=== PATIENT | male | born 1935 | race Caucasian/White ===

== ENCOUNTER 2017-04-05 08:35 | Inpatient (IN) | payer MEDICARE, OTHER ==
[~2017-04-05] VITALS: Ht 182.9 cm; Wt 70.0 kg
[~2017-04-05 08:35] MED LIST: ALBUTEROL S2.5 MG/.5 IN; CLARINEX5 MG PO; LIPITOR10 MG PO; MICARDIS40 MG PO; NASONEX50 MCG/AC NAB; NEXIUM40 M1 PO; PREDNISONE10 MG PO; SPIRIVA IN
--- NOTE | 2017-04-05 08:35 | NUR ---
TO ROOM 9 VIA STRETCHER BY EMS. ALERT. COOPERATIVE. ON 02 AT 2L/MIN PER CANNULA ( PER USUAL). HOB ELEVATED. MD AT BEDSIDE UPON ARRIVAL. LEFT INGUINAL HERNIA PROTRUDING. EVAL BY DR SANCHEZ. HERNIA REDUCED AND RETURNED TO NORMAL POSITION. EDUCATION TO CONDITION, PROCEDURE AND POTENTIONAL ADVESE EFFECTS EXPLINED IN DETAIL TO PT BY MD. PT VERBALIZED UNDERSTANDING.
--- NOTE | 2017-04-05 08:42 | NUR ---
PT SAID THAT HE HAS HAD ISSUES WITH THIS HERNIA FOR A LONG TIME. HOWEVER, HE CANNOT HAVE SURGERY BECAUSE HE CANNOT BE OUT TO SLEEP
[2017-04-05] MEDS ORDERED: TAMSULOSIN HCL0.4 MG PO (08:43)
[2017-04-05 09:02] LABS: HEMATOCRIT 51.5 % (39.0-50.0); HEMOGLOBIN 16.9 g/dl (14.0-18.0); MEAN CORPUSCULAR HGB 29.9 pG CALC (26.0-32.0); MEAN CORPUSCULAR HGB CONC 32.8 g/L CALC (32.0-36.0); NEUT# 22.44 thou/uL (1.82-7.42); RED BLOOD COUNT 5.66 mill/uL (4.70-6.10); RED CELL DISTRI WIDTH 13.6 % (11.5-15.5)
[2017-04-05] MEDS ORDERED: ANORO ELLIPTA 61 AER IN (09:04)
--- NOTE | 2017-04-05 09:12 | NUR ---
IV FLUIDS INITAITED. PATIENT DENIES ANY ABD PAIN AT THIS TIME. PATIENT REPORTS CONTINUED NAUSEA "DUE TO GERD". PATIENT AWARE OF PLAN OF CARE AND WAIT TIME. CALL KENNEY WITHIN REACH, WILL CONTINUE TO MONITOR.
[2017-04-05 09:14] LABS: ALBUMIN 4.2 g/dL (3.2-5.0); ALKALINE PHOSPHATASE 104 u/l (38-126); ANION GAP 17 (6-22 (CALC)); BILIRUBIN, TOTAL 1.1 mg/dL (0.0-1.4); BUN 18 mg/dL (8-23); BUN/CREATININE RATIO 17 (12-20 (CALC)); CALCIUM 10.4 mg/dL (8.4-10.2); CARBON DIOXIDE 37 mmol/l (22-30); CHLORIDE 90 mmol/l (95-108); CREATININE 1.1 mg/dL (0.7-1.3); GFR > 60 ML/MIN (>=60 (CALC)); GFR FOR AFR.AMER. > 60 ML/MIN (>=60 (CALC)); GLUCOSE 165 mg/dL (82-115); POTASSIUM 4.4 mmol/l (3.5-5.1); SGOT/AST 13 u/l (19-48); SGPT/ALT 25 u/l (11-66); SODIUM 140 mmol/l (137-146); TOTAL PROTEIN 7.4 g/dL (6.3-8.2)
--- NOTE | 2017-04-05 10:00 | NUR ---
PATIENT REPORTS LEFT INGUINAL HERNIA OUT AGAIN. MD NOTIFIED OF THE HERNIA AND ELEVATED WHITE COUNT AND LACTIC ACID. MD AT BEDSIDE INGUINAL HERNIA WAS REDUCED, PT TOLERATED WELL. AWAITING ORDERS.
--- NOTE | 2017-04-05 10:13 | NUR ---
SBAR PRINTED TO FLOOR
--- NOTE | 2017-04-05 10:28 | NUR ---
DR GREWAL AT BEDSIDE.
--- NOTE | 2017-04-05 10:45 | NUR ---
PATIENT ENCOURAGE BY DR GREWAL TO BE TRANSFERRED FOR POSSIBLE SURGERY. PATIENT DECLINED AND WOULD LIKE TO STAY HERE FOR FURTHER TREATMENT.
--- NOTE | 2017-04-05 11:15 | NUR ---
REPORT GIVEN TO TRISTAN LESTER.
--- NOTE | 2017-04-05 11:30 | NUR ---
PATIENT WAS TRANSPORTED TO ROOM 260 IN STABLE CONDITION, WITH PATENT IV.
--- NOTE | 2017-04-05 11:30 | NUR ---
Admission Note Report Given to: SBAR PRINTED TO FLOOR Transported by: Wheelchair X Stretcher Transported with: X Nurse Transporter X Patent IV X O2 Dyeing Machine Tender
[2017-04-05 11:35] VITALS: BP 138/60
--- NOTE | 2017-04-05 12:02 | NUR ---
REPORT RECEIVED FROM DELGADO IN ED, PT ARRIVED ON UNIT VIA STRETCHER AND TRANSFERRED TO BED, EXTREMELY WINDED AT THIS TIME, ASSISTED TO BSC AND BACK TO BED, O2 @ 2L IN PLACE VIA NC, WILL CONTINUE TO MONITOR AND ASSESS AFTER BREATHING GETS BETTER.
--- NOTE | 2017-04-05 14:55 | NUR ---
PT IS MUCH IMPROVED AT THIS TIME, BREATHING EEN AND NON-LABORED, ATE MEAL AND RESTING IN BED.
[2017-04-05 16:00] VITALS: BP 109/52
--- NOTE | 2017-04-05 16:09 | NUR ---
Spoke with patiet during rounds. Patient expressed concern about continuation of his prednisone and Anoro. He needs both of the medications for management of his COPD. Patient's nurse, Radha, stated that the medications needs to be review by the physician and brought down to pharmacy. Patient did not have any other questions or concerns regarding his medications.
[2017-04-05 17:01] LABS: URINE BILIRUBIN - DIPSTICK NEGATIVE (NEGATIVE); URINE BLOOD DIPSTICK TRACE-LYSED (NEGATIVE); URINE CLARITY CLEAR; URINE COLOR YELLOW; URINE GLUCOSE - DIPSTICK NEGATIVE (NEGATIVE); URINE KETONE NEGATIVE (NEGATIVE); URINE LEUK ESTERASE NEGATIVE (Negative); URINE NITRITE - DIPSTICK NEGATIVE (Negative); URINE PROTEIN - DIPSTICK NEGATIVE (NEG-TRACE); URINE SPECIFIC GRAVITY 1.015; URINE UROBILINOGEN - DIPSTICK 0.2 E.U./dL (0.2)
[2017-04-05 19:26] VITALS: BP 127/70
--- NOTE | 2017-04-05 19:30 | NUR ---
BEDSIDE REPORT RECEIVED FROM TRISTAN LESTER. PT RESTING IN BED SITTING UP. ENCOURAGED TO REPOSITION SELF DUE TO MILD REDNESS TO COCCYX. ALERT AND ORIENTED AT THIS TIME. DENIES PAIN AND NAUSEA. RESPIRATIONS EVEN AND UNLABORED ON OXYGEN VIA NC. PLAN OF CARE DISCUSSED. PT ENCOURAGED TO VERBALIZE CONCERNS. STATES UNDERSTANDING. SAFETY MEASURES IN PLACE. CALL LIGHT WITHIN REACH.
[2017-04-05 23:58] VITALS: BP 110/69
--- NOTE | 2017-04-06 01:17 | NUR ---
PT UP WITH ASSIST TO VOID. REPOSITIONING SELF OFF OF BUTTOCK. IV FLUIDS INFUSING WITHOUT DIFFICULTY; IV SITE APPEARS HEALTHY. PT OFFERS NO COMPLAINTS.
--- NOTE | 2017-04-06 04:19 | NUR ---
NO ACUTE CHANGES IN PATIENT CONDITION. ASSESSMENT UNCHANGED.
[2017-04-06 05:32] LABS: ANION GAP 8 (6-22 (CALC)); BUN 14 mg/dL (8-23); BUN/CREATININE RATIO 16 (12-20 (CALC)); CARBON DIOXIDE 30 mmol/l (22-30); CREATININE 0.9 mg/dL (0.7-1.3); GFR > 60 ML/MIN (>=60 (CALC)); GFR FOR AFR.AMER. > 60 ML/MIN (>=60 (CALC)); GLUCOSE 89 mg/dL (82-115); POTASSIUM 3.7 mmol/l (3.5-5.1); SODIUM 142 mmol/l (137-146)
[2017-04-06 05:33] LABS: CALCIUM 8.3 mg/dL (8.4-10.2); CHLORIDE 108 mmol/l (95-108)
[2017-04-06 05:35] LABS: HEMATOCRIT 38.1 % (39.0-50.0); HEMOGLOBIN 12.3 g/dl (14.0-18.0); MEAN CELL VOLUME 92.5 fL CALC (80.0-100.0); MEAN CORPUSCULAR HGB 29.9 pG CALC (26.0-32.0); MEAN CORPUSCULAR HGB CONC 32.3 g/L CALC (32.0-36.0); RED BLOOD COUNT 4.12 mill/uL (4.70-6.10); RED CELL DISTRI WIDTH 13.8 % (11.5-15.5)
[2017-04-06 08:26] VITALS: BP 149/72
--- NOTE | 2017-04-06 08:30 | NUR ---
IVF INFUSING WITHOUT DIFFICULTY; PT A/O X3; NO COMPLAINTS VOICED; IVF INFUSING WITHOUT DIFFICLTY; CALL KENNEY WITHIN REACH; WILL CONTINUE TO MONITOR.
--- NOTE | 2017-04-06 13:45 | NUR ---
FAMILY IN TO VISIT; PT INSISTING OF HAVING MEDS BOUGHT TO HIM AT THIS TIME; EXPLAINED TO PT THAT MED TAMSULOSIN IS SCHEDULED PER [facility] POLICY AND FOR HIS SAFETY; PT STATES THAT HE NEEDS TO TALK TO THE DOCTOR OR PHARMACIST, BECAUSE HE HAS TO TAKES HIS MEDICATIONS HE DOES AT HOME; ALSO REINFORCE TO PT THAT ONCE HE IS AT REHAB HE WILL HAVE TO ADHERE TO THE SCHEDULE THERE; PT AGAIN STATES THAT HE NEEDS TO TALK TO DOCTOR OR WITH THE PHARMACIST
[2017-04-06 16:00] VITALS: BP 184/78
--- NOTE | 2017-04-06 17:45 | NUR ---
PT TOLERATING DINNER WELL; NO COMPLAINTS VOICED AT THIS TIME; CALL KENNEY WITHIN REACH; WILL CONTINUE TO MONITOR.
[2017-04-06 19:18] VITALS: BP 135/71
--- NOTE | 2017-04-06 21:20 | NUR ---
PT RESTING IN HIGH FOWLERS POSITION WATCHING TV;NO S/S OF DISTRESS NOTED;URINAL EMPTIED OF 400CC OF CLEAR/YELLOW URINE;RESPIRATIONS EVEN AND UNLABORED ON 02 @ 2L VIA NC;PT ENCOURAGED TO REPOSITION FREQUENTLY OFF OF BUTTOCKS TO PREVENT FURTHER REDDENING;ASSESSMENT COMPLETED;#20G TO LFA FLUSHED,PATENT AND SITE APPEARS HEALTHY;WARM WASH CLOTH PROVIDED PER REQUEST AND PT CLEANED FACE AND HANDS;PT ALERT AND ORIENTED;PT VOICES NO CONCERN OR NEEDS;SAFETY PRECAUTIONS REINFORCED;PT EDUCATED TO CALL FOR ASSISTANCE IF NEEDED;CALL LIGHT IN REACH;WILL CONTINUE TO MONITOR
--- NOTE | 2017-04-06 23:30 | NUR ---
PT RESTING IN HIGH FOWLERS POSITION;VS OBTAINED BY DEMI HERRERA;RESPIRATIONS REMAIN EVEN AND UNLABORED ON 02 @ 2L;PT VOICES NO NEEDS OR COMPLAINTS AT THIS TIME;CALL LIGHT IN REACH;WILL CONTINUE TO MONITOR
[2017-04-07] VITALS (7 sets, daily range): BP systolic 154–210; BP diastolic 74–94
--- NOTE | 2017-04-07 05:10 | NUR ---
PT APPEARS TO BE SLEEPING IN HIGH FOWLERS POSITION;WOKE PT TO ADMINISTER SCHEDULED MEDICATIONS;PT DENIES ANY PAIN OR DISCOMFORTS;RESPIRATIONS EVEN AND UNLABORED ON 02 @ 2L;PT AND WRITTER DISCUSSED WHEN HE WOULD BE GOING TO REHAB AND PT STATES "IM READY TO GO NOW,MY JUST HAS TO BRING MY THINGS";PT VOICES NO OTHER NEEDS AT THIS TIME;WILL CONTINUE TO MONITOR
[2017-04-07 05:57] LABS: HEMATOCRIT 37.8 % (39.0-50.0); HEMOGLOBIN 11.8 g/dl (14.0-18.0); MEAN CELL VOLUME 93.6 fL CALC (80.0-100.0); MEAN CORPUSCULAR HGB 29.2 pG CALC (26.0-32.0); MEAN CORPUSCULAR HGB CONC 31.2 g/L CALC (32.0-36.0); RED BLOOD COUNT 4.04 mill/uL (4.70-6.10); RED CELL DISTRI WIDTH 13.6 % (11.5-15.5)
[2017-04-07 06:29] LABS: ANION GAP 10 (6-22 (CALC)); BUN 12 mg/dL (8-23); BUN/CREATININE RATIO 13 (12-20 (CALC)); CALCIUM 8.2 mg/dL (8.4-10.2); CARBON DIOXIDE 32 mmol/l (22-30); CHLORIDE 105 mmol/l (95-108); CREATININE 0.9 mg/dL (0.7-1.3); GFR > 60 ML/MIN (>=60 (CALC)); GFR FOR AFR.AMER. > 60 ML/MIN (>=60 (CALC)); GLUCOSE 80 mg/dL (82-115); POTASSIUM 3.5 mmol/l (3.5-5.1); SODIUM 143 mmol/l (137-146)
--- NOTE | 2017-04-07 07:45 | NUR ---
PT IN HIGH FOWLERS POSITION; DENIES PAIN; O2 2L VIA NC; PT ASSISTED WITH BREAKFAST SET UP; CALL KENNEY WITHIN REACH; WILL CONTINUE TO MONITOR.
--- NOTE | 2017-04-07 11:00 | NUR ---
SPOUSE IN TO VISIT WITH PT; SPOUSE REQUESTING TO SPEAK WITH CM WHEN SHE RETURN AFTER LUNCH; NOTIFY TRISTAN COULTER; PT DENIES PAIN AT THIS TIME; CALL KENNEY WITHIN REACH; WILL CONTINUE TO MONITOR.
--- NOTE | 2017-04-07 12:36 | NUR ---
PT WAS SEEN RESTING IN THE BED WITH O2 VIA NASAL CANNULA SET AT 2L. INITIAL SPO2 AT 98%. PT INDEPENDENTLY ASSUMED SITTING FROM SUPINE POSITION. [id number] WITH SBA. TRANSFERRED FROM BED TO RECLINER WITH RW AND SBA. SPO2 DECREASED TO 92%. PT WAS INSTRUCTED TO RELAX AND BREATHE PROPERLY, SPO2 IMMEDIATELY RETURNED TO 98%. NO ADVERSE RXN NOTED. LEFT PT WITH CALL KENNEY BESIDE HIM.
--- NOTE | 2017-04-07 13:25 | NUR ---
PT IN RECLINER; O2 2L VIA NC; NO COMPLAINTS AT THIS TIME; CALL KENNEY WITHIN REACH; WILL CONTNUE TO MONITOR.
--- NOTE | 2017-04-07 17:18 | NUR ---
PT ASSISTED TO RECLINER; NO COMPLAINTS VOICED AT THIS TIME; 02 2L VIA NC; CALL KENNEY WITHIN REACH; WILL CONTINUE TO MONITOR.
--- NOTE | 2017-04-07 19:15 | NUR ---
RECEIVED BEDSIDE REPORT FROM TRISTAN HINKLE;PT RESTING IN HIGH FOWLERS POSITION;RESPIRATIONS EVEN AND UNLABORED ON 02 @ 2L VIA NC;PT VOICES NO CONERNS OF PAIN;PT EDUCATED ON ELEVATED BP OF 162/89 AND PRN HYDRALAZINE;PT STATES "IM NOT GOING TO TAKE ANYTHING FOR MY BLOOD PRESSURE,THE LIPITOR WILL LOWER MY BLOOD PRESSURE";PT EDUCATED ON LIPITOR USE BUT PT STILL REFUSES ANY BP MEDICATIONS;WILL CONTINUE TO MONITOR
--- NOTE | 2017-04-07 20:30 | NUR ---
PT ASSESSMENT COMPLETED;#20G TO LEFT FOREARM FLUSHED AND PATENT;PT VOICES NO COMPLAINTS AT THIS TIME;URINAL EMPTIED OF 220CC OF YELLOW/CLEAR URINE;PO FLUIDS ENCOURAGED;PT REPOSITIONED TO PREVENT FURTHER REDDENING OF COCCYX;SAFETY PRECAUTIONS REINFORCED;CALL LIGHT IN REACH;WILL CONTINUE TO MONITOR
--- NOTE | 2017-04-07 22:00 | NUR ---
MANUAL BP OF 210/94 OBTAINED;PT AND WRITTER DISCUSSED OPTIONS AND PT AGREED TO PRN HYDRALAZINE 10MG;MEDICATION ADMINISTERED BY TRISTAN WATERS,WILL MONITOR FOR EFFECT;;CALL LIGHT IN REACH;WILL CONTINUE TO MONITOR
--- NOTE | 2017-04-07 22:40 | NUR ---
MANUAL BP OF 174/80
--- NOTE | 2017-04-07 23:50 | NUR ---
PT APPEARS TO BE SLEEPING IN SEMI FOWLERS POSITION;RESPIRATIONS EVEN AND UNLABORED ON 02 @ 2L VIA NC;VS OBTANIED BP AT 155/84;IV SITE REMAINS PATENT;PT DENIES ANY NEEDS AT THIS TIME;CALL LIGHT IN REACH;WILL CONTINUE TO MONITOR
[2017-04-08 05:04] VITALS: BP 173/83
--- NOTE | 2017-04-08 05:05 | NUR ---
PT MANUAL BP OF 173/83;PRN HYDRALAZINE ADMINISTERED BY TRISTAN WATERS;RESPIRATIONS EVEN AND UNLABORED OXYGEN @ 2L;PT VOICES NO COMPLAINTS AT THIS TIME;FALL PRECAUTIONS IN PLACE;WILL CONTINUE TO MONITOR FOR EFFECT
[2017-04-08 06:06] LABS: HEMATOCRIT 41.4 % (39.0-50.0); HEMOGLOBIN 13.2 g/dl (14.0-18.0); IMMATURE GRANULOCYTES 0.5 % (0.0-1.0); MEAN CELL VOLUME 91.8 fL CALC (80.0-100.0); MEAN CORPUSCULAR HGB 29.3 pG CALC (26.0-32.0); MEAN CORPUSCULAR HGB CONC 31.9 g/L CALC (32.0-36.0); NEUT# 10.31 thou/uL (1.82-7.42); RED BLOOD COUNT 4.51 mill/uL (4.70-6.10); RED CELL DISTRI WIDTH 13.5 % (11.5-15.5)
--- NOTE | 2017-04-08 06:20 | NUR ---
BP 139/76 AT THIS TIME
[2017-04-08 06:21] VITALS: BP 139/76
[2017-04-08 06:30] LABS: ANION GAP 12 (6-22 (CALC)); BUN 10 mg/dL (8-23); BUN/CREATININE RATIO 12 (12-20 (CALC)); CALCIUM 8.6 mg/dL (8.4-10.2); CARBON DIOXIDE 33 mmol/l (22-30); CHLORIDE 102 mmol/l (95-108); CREATININE 0.9 mg/dL (0.7-1.3); GFR > 60 ML/MIN (>=60 (CALC)); GFR FOR AFR.AMER. > 60 ML/MIN (>=60 (CALC)); GLUCOSE 79 mg/dL (82-115); MAGNESIUM 1.7 mg/dL (1.6-2.3); POTASSIUM 3.3 mmol/l (3.5-5.1); SODIUM 143 mmol/l (137-146)
--- NOTE | 2017-04-08 07:50 | NUR ---
PT IN HIGH BUTTERFIELD POSITION; A/O X3; DIRECTOR SOFTWARE QUALITY ASSURANCE COUGH NOTED; O2 2L VIA NC; PT STATES HE DOES NOT FEEL LIKE HE IS GETTING ENOUGH AIR; O2 SAT 96% VIA NC; EILEEN BRANNON IN TO SEE PT; PLAN OF CARE DISCUSSED; CALL KENNEY WITHIN REACH; WILL CONTINUE TO MONITOR
[2017-04-08 07:57] VITALS: BP 136/78
--- NOTE | 2017-04-08 10:00 | NUR ---
PHYSICAL THERAPY IN WITH PT;
--- NOTE | 2017-04-08 10:09 | NUR ---
1000: PATIENT STATES HE WANTS TO GO ON HOSPICE. HE NEEDED MAX ENCOURAGEMENT TO WALK. HE WALKED IN THE ROOM WITH THE RW AND CONTACT GUARD. GOOD PATTERNING. REQUIRED CUING FOR SAFETY DURING TRANSFERS. ENDURANCE WAS 20 FEET X2 WITH A MINUTE REST INBETWEEN. PO2 WAS 95-96% PRE AND POST WALKING. WALK WAS DONE WITH THE OXYGEN ON. HE WAS LEFT UP IN THE CHAIR WITH THE O2 ON AND THE CALL LIGHT IN HIS LAP.
--- NOTE | 2017-04-08 10:48 | NUR ---
SPOKE WITH COLEEN FROM HOSPICE STATES WILL CONTACT PT'S SPOUSE AND SET UP A MEETING FOR THIS AFTERNOON
--- NOTE | 2017-04-08 13:30 | NUR ---
[facility] NURSE IN WITH PT AND SPOUSE
[2017-04-08 15:33] VITALS: BP 147/84
--- NOTE | 2017-04-08 16:00 | NUR ---
PT IN HIGH BUTTERFIELD POSITION; O2 2L VIA NC; NO COMPLAINTS VOICED AT THIS TIME; CALL KENNEY WITHIN REACH; WILL CONTINUE TO MONITOR.
--- NOTE | 2017-04-08 18:36 | NUR ---
[facility] IN TO TRANSPORT PT TO HOSPICE. IV SITE INTACT. O2 INTACT. ALL PAPERS GIVEN TO DAVY.
--- NOTE | 2017-04-09 09:50 | NUR ---
came in to merchandise pickup/receiving associate pt's personal medications from med room. Medications given to .
== END 2017-04-08 17:29 | disposition hospice, inpatient (51) | DRG 394 ==
LOC: ED 08:35 → ED-I 10:03 → ED 11:01 → MS2 11:02
PROVIDERS: Emergency Medicine; Nurse Practitioner Family; ADMIT Internal Medicine; ATTEND Internal Medicine
DX: K40.30 Unilateral inguinal hernia, with obstruction, without gangrene, not specified as recurrent (principal); E87.2 Acidosis; J44.9 Chronic obstructive pulmonary disease, unspecified; Z99.81 Dependence on supplemental oxygen; E78.5 Hyperlipidemia, unspecified; N40.0 Benign prostatic hyperplasia without lower urinary tract symptoms; I10 Essential (primary) hypertension; Z66 Do not resuscitate; Z79.52 Long term (current) use of systemic steroids; Z51.5 Encounter for palliative care
CPT/HCPCS: J0692